=== PATIENT | female | born 1965 | race Hispanic/Latino ===

== ENCOUNTER 2016-12-03 23:03 | Emergency (ER) | payer SELFPAY ==
[~2016-12-03] VITALS: Ht 139.7 cm; Wt 70.6 kg
[~2016-12-03 23:03] MED LIST: NO MEDS
[2016-12-04] MEDS ORDERED: AMOXICILLIN500 MG PO (00:25)
[2016-12-04] MEDS ORDERED: PERCOCET 5/325M1 TAB PO (00:25)
[2016-12-04 00:55] VITALS: BP 110/84
== END 2016-12-04 00:55 | disposition home or self-care (01) | DRG 159 ==
LOC: ED 23:03
DX: K08.89 Other specified disorders of teeth and supporting structures (principal); Z96.5 Presence of tooth-root and mandibular implants